=== PATIENT | female | born 1950 | race Caucasian/White ===

== ENCOUNTER 2023-02-28 19:55 | Emergency (ER) | payer MEDICARE, OTHER ==
[~2023-02-28] VITALS: Ht 177.8 cm; Wt 75.0 kg
[2023-02-28 20:16] VITALS: TEMP 98
[2023-02-28 21:48] VITALS: BP 104/63; PULSE 83
== END 2023-02-28 21:48 | disposition home or self-care (01) ==
LOC: COL.ER 19:55
DX: S42.202A Unspecified fracture of upper end of left humerus, initial encounter for closed fracture (principal); S01.511A Laceration without foreign body of lip, initial encounter; Z79.01 Long term (current) use of anticoagulants; W01.198A Fall on same level from slipping, tripping and stumbling with subsequent striking against other object, initial encounter
CPT/HCPCS: J2270